=== PATIENT | male | born 1995 | race African-American/Black ===

== ENCOUNTER 2018-06-05 10:45 | Emergency (ER) | payer SELFPAY ==
[~2018-06-05] VITALS: Ht 182.9 cm; Wt 88.0 kg
[2018-06-05 11:45] VITALS: BP 131/76
== END 2018-06-05 17:51 | disposition left against medical advice (07) ==
LOC: ER 11:21
DX: Z53.21 Procedure and treatment not carried out due to patient leaving prior to being seen by health care provider (principal)